=== PATIENT | female | born 1965 | race Caucasian/White ===

== ENCOUNTER → 2016-06-02 | Outpatient (REF) | payer MEDICARE, OTHER ==
[~2016-06-02] MED LIST: AMANTADINE; AMN100CCIP; BACL10TA; CYCL10TA45 PO; DIME240C2; ELET40TA; ESCI20TA39; HYDR-3702 PO; LOSA100T8; MELO-249; METH-288 IH; PANT40TA3; PRAM0.128; PRED10TA; PREG50C; SPRN25T; TRAM-291ED
== END ==
LOC: LAB 14:50
PROVIDERS: ATTEND Orthopaedic Surgery Orthopaedic Surgery of the Spine
DX: Z01.89 Encounter for other specified special examinations (principal)
CPT/HCPCS: 85610; 85730